=== PATIENT | female | born 1985 | race Two or more races ===

== ENCOUNTER 2021-08-18 08:37 | Inpatient (IN) | payer MEDICAID, OTHER ==
[~2021-08-18] VITALS: Ht 154.9 cm; Wt 79.4 kg
[2021-08-18] MEDS ORDERED: HYDROmorphone HCL 2 MG/ML VL IV ONE ×2 (09:15→11:30)
[2021-08-18] MEDS ORDERED: SODIUM CHLORIDE 0.9% 1,000 ML IV ONE (09:45)
[2021-08-18] MEDS ORDERED: SODIUM CHLORIDE 0.9% 500 ML IV ONE (09:45)
[2021-08-18 10:25] LABS: Basophils # (auto) 0.1 10 ^3/uL (0-0.2); Basophils % (auto) 1.2 % (0.0-2.0); Eosinophils # (auto) 0.1 10 ^3/uL (0-0.8); Eosinophils % (auto) 1.6 % (0.0-7.0); Hematocrit 32.6 % (36.0-46.0); Hemoglobin 11.2 g/dL (12.2-16.2); Lymphocytes # (auto) 0.8 10 ^3/uL (0.4-5.4); Lymphocytes % (auto) 11.4 % (10.0-50.0); Mean Corpuscular Hemoglobin 28.4 pg (28.0-32.0); Mean Corpuscular Hgb Conc. 34.2 g/dL (32.0-36.0); Monocytes # (auto) 0.6 10 ^3/uL (0-1.3); Monocytes % (auto) 8.4 % (0.0-12.0); Neutrophils # (auto) 5.6 10 ^3/uL (1.6-8.6); Neutrophils % (auto) 77.4 % (37.0-80.0); Nucleated Red Blood Cells % 0.1 %; Red Blood Cells 3.93 10^6/uL (4.0-5.20); Red Cell Distribution Width 13.1 % (11.8-14.3); White Blood Cell 7.3 10^3/uL (4.4-10.8)
[2021-08-18 10:45] LABS: Albumin 2.9 g/dL (3.4-5.0); Bilirubin, Direct 0.5 mg/dL (0-0.2)
[2021-08-18 10:48] LABS: Bilirubin, Total 0.8 mg/dL (0.2-1.0); Total Protein 7.5 g/dL (6.4-8.2)
[2021-08-18 11:25] LABS: BUN/Creatinine Ratio 15.9; Calcium 8.6 mg/dL (8.5-10.1); Magnesium 2.3 mg/dL (1.6-2.6); Potassium 3.6 mmol/L (3.5-5.1)
[2021-08-18] MEDS ORDERED: TEMAZEPAM 15 MG CAP PO PRN (14:30)
[2021-08-18] MEDS ORDERED: ONDANSETRON HCL 4 MG/2 ML VIAL IV PRN (14:30)
[2021-08-18] MEDS ORDERED: ALUM & MAG HYDROX-SIMETH LIQ(MAALOX) 30 ML PO PRN (14:30)
[2021-08-18] MEDS ORDERED: ACETAMINOPHEN 325 MG TAB PO PRN (14:30)
[2021-08-18] MEDS ORDERED: MORPHINE SULFATE INJECTION 2 MG/ML SYRG IV PRN ×2 (14:30)
[2021-08-18] MEDS ORDERED: HYDROcodone-ACET 5/325MG TAB PO PRN (14:30)
[2021-08-18] MEDS ORDERED: DOCUSATE SOD 100 MG CAP PO PRN (14:30)
[2021-08-18] MEDS ORDERED: NITROGLYCERIN 0.4 MG SL TAB SL PRN (14:30)
[2021-08-18 15:24] LABS: Cholesterol 112 mg/dL (< 200); Triglycerides 59 mg/dL (< 150)
[2021-08-18 15:27] LABS: HDL Cholesterol 40 mg/dL (40-59); LDL Cholesterol 57 mg/dL (< 100)
[2021-08-18] MEDS: SODIUM CHLORIDE 0.9% 1,000 ML IV SCH ×2 (16:19→22:27)
[2021-08-18 17:00] VITALS: BP 103/64
[2021-08-18 22:00] VITALS: BP 104/51
[2021-08-19] MEDS: SODIUM CHLORIDE 0.9% 1,000 ML IV SCH ×5 (03:49→20:48)
[2021-08-19 05:00] VITALS: BP 112/69
[2021-08-19 08:48] VITALS: BP 130/64
[2021-08-19 09:12] LABS: INR 1.06 (0.9-1.15)
[2021-08-19 13:00] VITALS: BP 113/74
[2021-08-19 17:00] VITALS: BP 124/77
[2021-08-19 22:07] VITALS: BP 124/72
[2021-08-20] MEDS: SODIUM CHLORIDE 0.9% 1,000 ML IV SCH ×3 (03:09→11:17)
[2021-08-20 05:11] VITALS: BP 112/72
[2021-08-20 09:00] VITALS: BP 106/74
[2021-08-20 11:51] LABS: Basophils # (auto) 0 10 ^3/uL (0-0.2); Basophils % (auto) 0.4 % (0.0-2.0); Eosinophils # (auto) 0.1 10 ^3/uL (0-0.8); Eosinophils % (auto) 1.1 % (0.0-7.0); Hematocrit 33.2 % (36.0-46.0); Lymphocytes # (auto) 0.8 10 ^3/uL (0.4-5.4); Mean Corpuscular Hgb Conc. 33.2 g/dL (32.0-36.0); Mean Corpuscular Volume 84.4 fL (80.0-100.0); Monocytes # (auto) 0.3 10 ^3/uL (0-1.3); Neutrophils # (auto) 4.3 10 ^3/uL (1.6-8.6); Neutrophils % (auto) 77.5 % (37.0-80.0); Nucleated Red Blood Cells % 0.1 %; Red Blood Cells 3.93 10^6/uL (4.0-5.20); White Blood Cell 5.6 10^3/uL (4.4-10.8)
[2021-08-20 12:08] LABS: Potassium 3.7 mmol/L (3.5-5.1)
[2021-08-20 12:17] LABS: Albumin 2.6 g/dL (3.4-5.0); BUN/Creatinine Ratio 7.6; Bilirubin, Total 1.2 mg/dL (0.2-1.0); Calcium 8.4 mg/dL (8.5-10.1); Magnesium 1.9 mg/dL (1.6-2.6); Total Protein 7.1 g/dL (6.4-8.2)
[2021-08-20 12:51] LABS: Urine Bacteria FEW /hpf (None Seen); Urine Blood Negative /uL (Negative); Urine Mucus FEW (None Seen); Urine Specific Gravity 1.013 (1.001-1.035); Urine WBC 63 /hpf (0 - 5)
[2021-08-20 13:00] VITALS: BP 119/75
[2021-08-20 15:38] LABS: Bilirubin, Direct 0.8 mg/dL (0-0.2); Bilirubin, Total 1.2 mg/dL (0.2-1.0)
[2021-08-20 16:41] LABS: Hepatitis A Ab IgM Negative; Hepatitis B Core IgM Negative; Hepatitis C Antibody Negative (Negative)
[2021-08-20 17:00] VITALS: BP 115/76
[2021-08-20 21:50] VITALS: BP 93/60
[2021-08-21 05:00] VITALS: BP 97/65
[2021-08-21 09:00] VITALS: BP 107/68
[2021-08-21] MEDS ORDERED: NEOSTIGMINE 1 MG/ML INJ (10mg/10ML VIAL) IV ONE (11:54)
[2021-08-21] MEDS ORDERED: PHENYLEPHRINE HCL 10 MG/ML VL IV ONE (11:54)
[2021-08-21] MEDS ORDERED: GLYCOPYRROLATE 0.2 MG/ML 1ML VIAL IV ONE (11:54)
[2021-08-21] MEDS ORDERED: ceFAZolin 1GM/50ML 100 ML IV ONE (11:56)
[2021-08-21] MEDS ORDERED: LIDOCAINE HCL (LOCAL ANESTH.) 0.5 % 50ML MDV IJ ONE (12:04)
[2021-08-21] MEDS ORDERED: LIDOCAINE W/ EPINEPHRINE 1% 20ML VIAL ONE (12:15)
[2021-08-21] MEDS ORDERED: fentaNYL CITRATE 100 MCG/2 ML VL ONE (12:22)
[2021-08-21] MEDS ORDERED: MEPERIDINE HCL (50 MG/ML) 1 ML VIAL ONE (12:22)
[2021-08-21] MEDS ORDERED: SUCCINYLCHOLINE CHLORIDE 20 MG/ML 10ML VIAL IV ONE (12:22)
[2021-08-21] MEDS ORDERED: MIDAZOLAM HCL 2MG/2ML 2ml VIAL (1mg/ml) ONE ×2 (12:22→13:39)
[2021-08-21] MEDS ORDERED: BUPIVACAINE HCL 50 ML ONE (12:47)
[2021-08-21] MEDS ORDERED: DexAMETHasone SOD PHOS 10MG/1ML VIAL INJ ONE (12:49)
[2021-08-21] MEDS ORDERED: ROCURONIUM 10MG/ML 10ML VIAL IV ONE (12:51)
[2021-08-21] MEDS ORDERED: ONDANSETRON HCL 4 MG/2 ML VIAL ONE (12:51)
[2021-08-21] MEDS ORDERED: PROPOFOL 10 MG/ML 20 ML IV ONE (12:51)
[2021-08-21] MEDS ORDERED: HYDROmorphone HCL 2 MG/ML VL IV PRN (13:15)
[2021-08-21] MEDS ORDERED: ONDANSETRON HCL 4 MG/2 ML VIAL IV PRN ×3 (13:15→13:30)
[2021-08-21] MEDS ORDERED: ePHEDrine SULFATE 50 MG/ML AMP IV PRN (13:15)
[2021-08-21] MEDS ORDERED: METOCLOPRAMIDE HCL 5MG/ml INJ 2ml VIAL IV PRN (13:15)
[2021-08-21] MEDS ORDERED: MORPHINE SULFATE 4 MG/ML SYR/VIAL IV PRN (13:15)
[2021-08-21] MEDS ORDERED: MIDAZOLAM HCL 2MG/2ML 2ml VIAL (1mg/ml) IV PRN (13:15)
[2021-08-21] MEDS ORDERED: LABETALOL HCL 5 MG/ML 4ML SYRINGE IV PRN (13:15)
[2021-08-21] MEDS ORDERED: ACETAMINOPHEN/CODEINE#3 (300/30mg) TAB PO PRN (13:30)
[2021-08-21] MEDS ORDERED: MORPHINE SULFATE INJECTION 2 MG/ML SYRG ONE (13:39)
[2021-08-21 17:00] VITALS: BP 96/59
[2021-08-21] MEDS: ceFAZolin 1GM/50ML 50 ML IV SCH (17:40)
[2021-08-21] MEDS: HYDROmorphone HCL 2 MG/ML VL IV PRN (17:41)
[2021-08-21 17:52] VITALS: BP 100/55
[2021-08-21] MEDS: KETOROLAC TROMETH 30 MG/ML 1ML VIAL IV PRN (21:19)
[2021-08-21 21:49] VITALS: BP 111/69
[2021-08-22] MEDS: ceFAZolin 1GM/50ML 50 ML IV SCH ×3 (02:03→18:42)
[2021-08-22 05:02] VITALS: BP 117/74
[2021-08-22] MEDS: D5W/SOD CHL 0.45%/KCL 20MEQ 1,000 ML IV SCH ×3 (06:04→22:50)
[2021-08-22] MEDS: HYDROmorphone HCL 2 MG/ML VL IV PRN ×3 (06:23→21:07)
[2021-08-22 06:42] LABS: Basophils # (auto) 0 10 ^3/uL (0-0.2); Basophils % (auto) 0.4 % (0.0-2.0); Eosinophils # (auto) 0 10 ^3/uL (0-0.8); Eosinophils % (auto) 0.3 % (0.0-7.0); Hematocrit 31.4 % (36.0-46.0); Hemoglobin 10.8 g/dL (12.2-16.2); Lymphocytes # (auto) 0.7 10 ^3/uL (0.4-5.4); Mean Corpuscular Hgb Conc. 34.4 g/dL (32.0-36.0); Mean Corpuscular Volume 84.3 fL (80.0-100.0); Monocytes # (auto) 0.4 10 ^3/uL (0-1.3); Monocytes % (auto) 5.9 % (0.0-12.0); Neutrophils # (auto) 6.2 10 ^3/uL (1.6-8.6); Neutrophils % (auto) 83.4 % (37.0-80.0); Nucleated Red Blood Cells % 0.1 %; Red Blood Cells 3.73 10^6/uL (4.0-5.20); Red Cell Distribution Width 13.6 % (11.8-14.3); White Blood Cell 7.5 10^3/uL (4.4-10.8)
[2021-08-22 09:00] VITALS: BP 114/70
[2021-08-22] MEDS: PANTOPRAZOLE 40 MG/10 ML VIAL INJ IV SCH (09:54)
[2021-08-22] MEDS: KETOROLAC TROMETH 30 MG/ML 1ML VIAL IV PRN (11:07)
[2021-08-22 12:53] VITALS: BP 109/71
[2021-08-22 14:26] VITALS: BP 109/71
[2021-08-22 16:41] VITALS: BP 102/76
[2021-08-22 22:00] VITALS: BP 108/69
[2021-08-23] MEDS: ceFAZolin 1GM/50ML 50 ML IV SCH ×2 (01:25→09:54)
[2021-08-23 04:47] VITALS: BP 115/73
[2021-08-23 09:00] VITALS: BP 95/74
[2021-08-23] MEDS: PANTOPRAZOLE 40 MG/10 ML VIAL INJ IV SCH (09:44)
[2021-08-23 13:00] VITALS: BP 101/64
== END 2021-08-23 15:23 | disposition home or self-care (01) | DRG 263 ==
LOC: EDBD 08:37 → ER 08:37 → OVERFLOW 14:28 → CENTRAL 17:00
PROVIDERS: ADMIT Family Medicine; ATTEND Internal Medicine
PROC: 0FT44ZZ Resection of Gallbladder, Percutaneous Endoscopic Approach (ICD-10-PCS; principal; 2021-08-21 12:36)
DX: K85.10 Biliary acute pancreatitis without necrosis or infection (principal); E44.0 Moderate protein-calorie malnutrition; E03.9 Hypothyroidism, unspecified; K59.01 Slow transit constipation; R73.9 Hyperglycemia, unspecified; E66.9 Obesity, unspecified; Z68.34 Body mass index [BMI] 34.0-34.9, adult; Z20.822 Contact with and (suspected) exposure to COVID-19; K80.10 Calculus of gallbladder with chronic cholecystitis without obstruction; Z82.49 Family history of ischemic heart disease and other diseases of the circulatory system; Z98.891 History of uterine scar from previous surgery
CPT/HCPCS: 36415; 71046; 74176; 74181; 76705; 80048; 80053; 80061; 80074; 80076; 81001; 81025; 82150; 82247; 82248; 83036; 83690; 83735; 84100; 84439; 84443; 84484; 84702; 85025; 85610; 86850; 86900; 86901; 93005; 96361; 96374; 96375; C9113; G0378; J0330; J0690; J1100; J1885; J2250; J2405; J2704; J3490

== ENCOUNTER 2021-09-20 15:03 | Emergency (ER) | payer MEDICAID ==
[~2021-09-20] VITALS: Ht 154.9 cm; Wt 76.7 kg
[2021-09-20 15:04] VITALS: BP 137/84
[2021-09-20] MEDS ORDERED: IBUP800T27 PO (15:52)
[2021-09-20] MEDS ORDERED: IBUPROFEN 800 MG TAB PO ONE (16:00)
== END 2021-09-20 16:10 | disposition home or self-care (01) ==
LOC: ER 15:03
DX: S62.617A Displaced fracture of proximal phalanx of left little finger, initial encounter for closed fracture (principal); W18.09XA Striking against other object with subsequent fall, initial encounter; Y93.89 Activity, other specified; Y92.89 Other specified places as the place of occurrence of the external cause; Y99.8 Other external cause status
CPT/HCPCS: 29125; 73130